=== PATIENT | female | born 1965 ===

== ENCOUNTER 2020-05-21 06:27 | Day surgery (SDC) | payer OTHER | END 2020-05-21 14:50 | disposition home or self-care (01) | LOC: CIR.AMB 06:27 → EDBD 08:45 → CIR.AMB 14:50 | PROVIDERS: ATTEND Orthopaedic Surgery Hand Surgery | DX: M65.332 Trigger finger, left middle finger (principal); Z20.822 Contact with and (suspected) exposure to COVID-19 ==